=== PATIENT | male | born 2000 | race Two or more races ===

== ENCOUNTER 2024-05-09 05:49 | Emergency (ER) | payer OTHER ==
[~2024-05-09] VITALS: Ht 172.7 cm; Wt 97.7 kg
[~2024-05-09 05:49] MED LIST: NOCURR
[2024-05-09 06:00] VITALS: TEMP 99.2
[2024-05-09] MEDS ORDERED: RABIES IMMUNE GLOBULIN/PF 150 UNIT/ML 10 ML VIAL IM. ONE (06:30)
[2024-05-09] MEDS: AMOX TR/POT CLAV 875 MG/125 MG TABLET PO ONE (06:35)
[2024-05-09] MEDS: PERTUSS(ACELL),DIPH,TET/PF 0.5 ML SYRINGE [ADULT] IM. ONE (06:36)
[2024-05-09] MEDS: BACITRACIN 0.9 GM PACKET OINTMENT TP ONE (06:36)
[2024-05-09] MEDS ORDERED: BACI28.410 TP (06:41)
[2024-05-09] MEDS ORDERED: AMOX-457 PO (06:41)
[2024-05-09] MEDS: RABIES VACCINE, HUMAN DIPLOID/PF 2.5 UNITS/ML VIAL IM. ONE (07:04)
[2024-05-09] MEDS: RABIES IMMUNE GLOBULIN/PF 150 UNIT/ML 10 ML VIAL IM. ONE (07:06)
[2024-05-09 07:41] VITALS: BP 123/82; PULSE 83; RESP 16
== END 2024-05-09 07:43 | disposition home or self-care (01) ==
LOC: EMS 05:52
DX: S50.811A Abrasion of right forearm, initial encounter (principal); Z23 Encounter for immunization; W55.01XA Bitten by cat, initial encounter; Y93.89 Activity, other specified; Y92.89 Other specified places as the place of occurrence of the external cause; Y99.8 Other external cause status
CPT/HCPCS: 90375; 90471; 90472; 90675; 90715; 96372; 99284